=== PATIENT | male | born 1985 | race Two or more races ===

== ENCOUNTER 2023-03-06 17:09 | Outpatient (CLI) | payer OTHER, BC | END 2023-03-06 23:59 | disposition critical access hospital (66) | LOC: EMS 17:09 | DX: R07.81 Pleurodynia (principal); V20.49XA Other motorcycle driver injured in collision with pedestrian or animal in traffic accident, initial encounter; Y93.89 Activity, other specified; Y92.414 Local residential or business street as the place of occurrence of the external cause | CPT/HCPCS: A0425; A0429 ==

== ENCOUNTER 2023-03-06 17:41 | Emergency (ER) | payer OTHER, BC ==
[2023-03-06] MEDS ORDERED: SODIUM CHLORIDE 0.9% 1,000 ML IV STA (17:54)
[2023-03-06] MEDS ORDERED: KETOROLAC 15 MG/ML VIAL IVP STA (17:54)
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
[2023-03-06] MEDS ORDERED: iohexoL-300 100 ML VIAL ONE (18:42)
[2023-03-06] MEDS ORDERED: iohexoL-300 100 ML VIAL IVP ONE (18:53)
--- NOTE | 2023-03-06 19:19 | ED Physician Documentation ---
ED Addendum - Addendum Addendum: 03/06/23 19:58 Patient received a signout from outgoing physician, please see their do cumentation for further detail. Patient evaluated dependently at bedside at approximately 2000 hrs. Continues to have some Pain consistent with CT findings of right-sided rib fractures.Findings communicated directly with patient including finding of 8 mm pulmonary nodule in the left lower lobe. Provided incentive spirometer and medication for pain control. Provided work note. Given tetanus updated and wound care in the emergency department.
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
[2023-03-06] MEDS ORDERED: BACITRACIN ZINC OINT 1 PACKET TOP STA (20:02)
[2023-03-06] MEDS ORDERED: TETANUS/DIPHTHERIA/PERTUSSIS 0.5 ML SYRINGE IM ONE (20:02)
[2023-03-06 20:20] VITALS: BP 169/94
== END 2023-03-06 20:20 | disposition home or self-care (01) ==
LOC: ED 17:41
DX: S22.41XA Multiple fractures of ribs, right side, initial encounter for closed fracture (principal); S80.812A Abrasion, left lower leg, initial encounter; V20.49XA Other motorcycle driver injured in collision with pedestrian or animal in traffic accident, initial encounter; Y93.55 Activity, bike riding; R91.1 Solitary pulmonary nodule
CPT/HCPCS: 36415; 71260; 74177; 90471; 90715; 96374; 99284; A9270; Q9967